=== PATIENT | male | born 1960 | race Caucasian/White ===

== ENCOUNTER 2017-01-21 20:06 | Emergency (ER) | payer BC ==
[~2017-01-21] VITALS: Ht 170.2 cm; Wt 85.4 kg
[2017-01-21 20:19] VITALS: BP 153/62
[2017-01-21 20:41] LABS: HEMATOCRIT 46.1 % (38.0-50.0); MCH 30.8 PG (29.0-34.0); MCHC 34.7 G/DL (30.0-36.0); MCV 88.8 FL (86-99); MEAN PLAT.VOLUME 9.9 uM^3 (9.0-12.4); PLATELET COUNT 132 K/uL (156-360); RBC DIS.WIDTH-CV 11.3 % (11.8-14.6); RBC DIS.WIDTH-SD 36.5 % (39-53); RED BLOOD COUNT 5.19 M/uL (4.00-5.50); WHITE BLOOD COUNT 2.9 K/uL (4.1-10.2)
[2017-01-21 20:48] LABS: ADD MIUA? YES; BILIRUBIN NEGATIVE; BLOOD SMALL; COLOR AMBER ((YELLOW)); GLUCOSE (STRIP) >=500; KETONES 5; LEUKOCYTES NEGATIVE; NITRITE NEGATIVE; PROTEIN (STRIP) NEGATIVE
[2017-01-21 20:50] LABS: CHLORIDE 100 mEq/L (99-109); POTASSIUM 4.5 mEq/L (3.7-5.4); SODIUM 135 mEq/L (136-147)
[2017-01-21 20:52] LABS: GLUCOSE 214 mg/dL (70-99)
[2017-01-21 20:55] LABS: ALKALINE PHOSPHATASE 213 IU/L (3-129)
[2017-01-21 20:56] LABS: GFR ESTIMATE (CALCULATED) > 59 mL/min/
[2017-01-21 20:57] LABS: UREA NITROGEN (BUN) 20 mg/dL (9-23)
[2017-01-21 20:59] LABS: LIPASE 17 U/L (1.0-51.0)
[2017-01-21 21:08] LABS: BACTERIA 1+ /HPF; CASTS NONE SEEN /LPF; CRYSTALS NONE SEEN; EPITHELIAL CELLS RARE /HPF; MUCUS 2+ /LPF; RED BLOOD CELLS 0-5 /HPF (0-5); UCUL ADDED? NO; WHITE BLOOD CELLS 0-5 /HPF (0-5)
[2017-01-21 21:17] LABS: ANION GAP 10 MEQ/L (2-14)
[2017-01-21 21:18] LABS: TOTAL BILIRUBIN 1.3 mg/dL (0.0-1.0)
[2017-01-21 21:37] LABS: ABS NEUTROPHIL COUNT 2.5; ATYPICAL LYMPHOCYTE 1.8 %; BAND NEUTROPHILS 21.8 % (0-8.0); BASOPHILS 0.9 %; EOSINOPHIL ABS CT 0; INSTRUMENT ABS NEUTROPHIL CT 2.2 K/uL; LYMPHOCYTES 7.3 % (15.0-45.0); SEG.NEUTROPHILS 62.7 % (46.0-76.0)
[2017-01-21 21:39] LABS: SAMPLE HEMOLYSIS CHECK 0; SAMPLE ICTERIC CHECK 0; SAMPLE LIPEMIA CHECK 0
== END 2017-01-21 22:23 | disposition home or self-care (01) ==
LOC: EME 20:06 → EXP 20:06
PROVIDERS: Physician Assistant
DX: R50.9 Fever, unspecified (principal); R51 Headache; E78.5 Hyperlipidemia, unspecified; E11.9 Type 2 diabetes mellitus without complications; R52 Pain, unspecified
CPT/HCPCS: 80053; 81003; 82010; 83605; 83690; 85025; 85027; 86618; 87040; 87086; 87651 90; 99281; 99285; J7030